=== PATIENT | female | born 1990 | race American Indian/Alaskan Native ===

== ENCOUNTER 2018-09-19 05:07 | Inpatient (IN) | payer OTHER ==
[2018-09-19 05:53] VITALS: BMI 32.5
[2018-09-19] MEDS ORDERED: Lactated Ringer's 1,000 ML IV ONE (06:11)
[2018-09-19] MEDS ORDERED: Penicillin G 5 Million Unit Vial IVPB ONE (06:11)
[2018-09-19] MEDS ORDERED: Lactated Ringer's 1,000 ML IV SCH (06:15)
[2018-09-19 06:33] LABS: BASO % 0.3 % (0.0-2.0); EOS # 0.1 K/uL (0.0-0.7); EOS % 0.7 % (0.0-4.0); HEMOGLOBIN 10.8 g/dL (11.0-16.0); LYMPH # 1.6 K/uL (1.0-4.3); MEAN CELL VOLUME 88.3 fL (81.0-99.0); MEAN CORPUSCULAR HEMOGLOBIN 29.5 pg (27.0-31.0); MEAN CORPUSCULAR HGB CONC 33.5 g/dL (33.0-37.0); MEAN PLATELET VOLUME 10.9 fL (7.2-11.7); MONO # 1.3 K/uL (0.0-0.8); MONO % 14.8 % (0.0-10.0); NEUT # 5.7 K/uL (1.8-7.0); NEUT % 65.2 % (50.0-75.0); RBC 3.66 Mil/uL (3.80-5.20); WHITE BLOOD COUNT 8.7 K/uL (4.8-10.8)
--- NOTE | 2018-09-19 06:45 | OBHP ---
Datetime: 09/19/2018 06:20 IP Adm Impression: Postterm, intrauterine ; No Active Labor; Intact Membranes IP Admit Plan: Admit to unit; Initiate labor protocol IP Admit Plan Other: Cervical ripening Admit Comment, IP Provider: 27 y.o. , LMP unsure, LIU 09/12/18 (per patient, no records in he r possession at this time), EGA 41 weeks c/o Ctx, onset 0200 hours, pain scale 6/10 to 7/10, every 10 minutes. (+) AFM; denies LOF, VB. care: [facility], last visit 09/14/18; h/o delivery at 26 weeks P Ob: x 4: all at [facility] [place], [place]. 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 No h/o STIs, abnormal Pap or myomata PMH: h/o asthma "I was very young". Denies ICU admission/intubation/ steroid use. Last attack"year sago". Does not use inhaler PSH: deneis NKDA Meds: last took vitamins 1 week ago "I ran out" Soc Hx: denies tobacco, illicit drug or EtOH use. Lives with her sister and her 3 daughters. Curre ntly unemployed Fam Hx: Mother alive 42. Father alive 40 - both, no med issues. Mat aunt - breast cance r. MGM also with cancer - type unknown P.E.: as above. Obese, in NAD. Awake, alert, oriented to time, person and place. Pleasant and coop erative. Assessment: 27 y.o. [id number], 41 weeks; h/o delivery with . CAtegory 1 tracing. GBS unknown. D/W patietn admission and anticipated vaginal delivery; will start with cervical ripeni ng. Patietn expressed an understanding and agrees. Patient is cliniclly stable. Plan: 1) ADmit 2) TRANSITION RN 3) Admission labs, including HIV, RPR, HBs Ag, rubella, UDS 4) Continuous EFM 5) Cervidil 6) Anticipate vaginal delivery - will endorse to incoming Attending Pelvic Type - PN: Adequate Extremities - PN: Normal Abdomen - PN: Normal Back - PN: Normal Breast - PN: Not Done Lungs - PN: Normal Heart - PN: Normal Thyroid - PN: Not Done Neurologic - PN: Normal HEENT - PN: Normal General - PN: Normal Weight - Estimated: 7lb Presentation-Admit: Vertex IP Fetus A Comments: 1deceleration noted x 3-4 minutes total; terrance to 90 bpm x 2 min - since recove red FHR - Baseline A Provider: 130 Contraction Comments Provider: irregular Comments, ACOG Physical Exam: HEENT: lower lip piercing on lower left lip Skin: multiple tattooes, arms and right leg Abdomen: Obese. Gravid. Soft, Non tender. Fundal height 40cm All other systems reviewed and are negative Gestation - Est Wks by US: 41.0 IP Hx Assessment: records not available EGA AdmitDate IP: 41.0 IP Indication for Induction: Postterm IP Chief Complaint: Uterine contractions NICHD Variability Prov Fetus A: Moderate 6-25bpm NICHD Accel Fetus A IP Provider: 15X15 FHR Category Provider Fetus A: Category I NICHD Decel Fetus A IP Provider: None Dilatation, Provider: 2-3 Effacement, Provider: 30 Station, Provider: -3 Genitourinary Exam: Normal DTRs - PN: Not Done
[2018-09-19 06:48] LABS: BARBITURATES, UR NEGATIVE (NEGATIVE); BENZODIAZEPINES, UR NEGATIVE (NEGATIVE); OPIATES, UR NEGATIVE (NEGATIVE); PHENCYCLIDINE, UR NEGATIVE (NEGATIVE)
--- NOTE | 2018-09-19 06:51 | OBPN ---
Datetime: 09/19/2018 06:47 IP Progress Impression Other: post sterm; previous delivery IP Procedures: Sterile Vag Exam IP Progress Plan: Cervical Ripening FHR - Baseline A Provider: 135 IP Progress Note Comment: Cervidil placed in posterior vaginal vault at 0645 hours NICHD Accel Fetus A IP Provider: 10X10 NICHD Variability Prov Fetus A: Moderate 6-25bpm NICHD Decel Fetus A IP Provider: None Datetime: 09/19/2018 06:20 Contraction Comments Provider: irregular IP Fetus A Comments: 1deceleration noted x 3-4 minutes total; terrance to 90 bpm x 2 min - since recove red Gestation - Est Wks by US: 41.0 Weight - Estimated: 7lb Presentation-Admit: Vertex FHR Category Provider Fetus A: Category I Dilatation, Provider: 2-3 Effacement, Provider: 30 Station, Provider: -3
[2018-09-19] MEDS ORDERED: Sodium Citrate/Citric Acid 15 ml Sol ONE ×2 (07:45→13:45)
[2018-09-19] MEDS ORDERED: cefOXitin IV 2 gm in Dextrose 2 GM/50 ML BAG IVPB ONE ×2 (07:46→14:00)
[2018-09-19] MEDS ORDERED: Morphine 1 mg/ml preservative-free Inj(Duramorph) ONE (07:59)
--- NOTE | 2018-09-19 08:55 | OBPN ---
Datetime: 09/19/2018 08:48 IP Progress Impression Other: NRFHT IP Informed Consent Obtain: Section Delivery IP Progress Plan: Deliver- Section FHR - Baseline A Provider: 130s IP Fetus A Comments: Bradycardia for 7 min from 130s-->90s, cervidil removed and resuscitation efforts made, pt given O2 and IV bolus. Scalp stim. with FHR recovery to 160s IP Progress Note Comment: a/p: 27 yo at 41 wks with NRFHT - multigravida - GBS + - Cat 3 - for stat C/S *late entry 2nd to performing stat C/S* Vital Signs Provider: Reviewed; Within Normal Limits NICHD Accel Fetus A IP Provider: 15X15 FHR Category Provider Fetus A: Category III NICHD Variability Prov Fetus A: Moderate 6-25bpm NICHD Decel Fetus A IP Provider: Late; Prolonged
--- NOTE | 2018-09-19 08:57 | OBDS ---
DELIVERY PERSONNEL Delivery Doctor: Tommy Dey MD Anesthesiologist: Edith Matias MD (Annotations: Data stored by [facility] on behalf of user) LABOR SUMMARY EDC: 09/12/2018 00:00 LABOR INFORMATION Onset of Labor: 09/19/2018 02:00 Cervical Ripening Agents: Cervidil (Annotations: 10mg inserted vaginally by ) STAGES OF LABOR Stage 3 hrs: 0 Stage 3 min: 1 Total Time in Labor hrs: 6 Total Time in Labor min: 11 CSECTION DELIVERY Primary Indication: Nonreassuring Status CSection Urgency: Emergency CSection Incidence: Primary Labor: No Labor Elective: Nonelective CSection Incision: Lower Uterine Transverse Uterine Closure: Double-layer closure BABY A INFORMATION Delivery Date/Time: 09/19/2018 08:10 Method of Delivery: Born in Route : No : N/A Forceps: N/A Vacuum Extraction: N/A Shoulder Dystocia : No SHOULDER DYSTOCIA BABY A Delivery Date/Time: 09/19/2018 08:10 PRESENTATION/POSITION BABY A Presentation: Cephalic Cephalic Presentation: Vertex Vertex Position: Left Occipital Anterior Breech Presentation: N/A PLACENTA INFORMATION BABY A Placenta Delivery Time : 09/19/2018 08:11 Placenta Method of Delivery: Manual Removal Placenta Status: Delivered SCORES BABY A Heart Rate 1 min: >100 bpm Resp Effort 1 min: Good Cry Reflex Irritability 1 min: Cough or Sneeze or Pulls Away Muscle Tone 1 min: Active Motion Color 1 min: Body Glide, Extremities Blue SCORE 1 MIN: 9 Heart Rate 5 min: >100 bpm Resp Effort 5 min: Good Cry Reflex Irritability 5 min: Cough or Sneeze or Pulls Away Muscle Tone 5 min: Active Motion Color 5 min: Body Glide, Extremities Blue SCORE 5 MIN: 9 INFANT INFORMATION BABY A Gestational Age at Delivery: 41.0 Gestational Status: Term Infant Outcome : Liveborn Condition : Stable Infant Sex: Male IDENTIFICATION/MEDS BABY A ID Band Location: Left Leg; Left Arm Sensor Applied: Yes Sensor Number: [id number] Sensor Location : Cord Clamp WEIGHT/LENGTH BABY A Birthweight (gms): 3415 Infant Weight (lb): 7 Weight (oz): 8 Length Inches: 18.50 Length cms: 47.0 CORD INFORMATION BABY A No. Cord Vessels: 3 Nuchal Cord : Around Neck x1, Loose Nuchal Cord Other: N/A True Knot: 0 Cord Blood Taken: Yes Suction: Mouth; Nose ASSESSMENT BABY A Complications: None Physical Findings at Delivery: Within Normal Limits Respirations: Appears Normal Commercial Real Estate Lender/ALS Called : No Infant Care By: Dr. House/Ebony RN Transferred To: Remains with Mother
[2018-09-19 17:36] LABS: RAPID PLASMA REAGIN NONREACTIVE (NONREACTIVE)
[2018-09-20 07:26] LABS: HEMOGLOBIN 10.1 g/dL (11.0-16.0); MEAN CELL VOLUME 87.5 fL (81.0-99.0); MEAN CORPUSCULAR HEMOGLOBIN 29.4 pg (27.0-31.0); MEAN CORPUSCULAR HGB CONC 33.6 g/dL (33.0-37.0); MEAN PLATELET VOLUME 9.9 fL (7.2-11.7); RBC 3.45 Mil/uL (3.80-5.20); WHITE BLOOD COUNT 10.7 K/uL (4.8-10.8)
--- NOTE | 2018-09-20 19:27 | OBPPN ---
Datetime: 09/20/2018 07:28 PP Pain Prov: Within normal limits PP Nausea Prov: Denies PP Flatus Prov: Yes PP BM Prov: No PP Heart Prov: Normal PP Lungs Prov: Normal PP C/S Incision Prov: Normal PP Comments Phys Exam Prov: Gen: no acute distress Heart: RRR, no m/r/g Lungs: CTAB, no r/r/w Abd: soft, TTP on LUQ. Dressing removed - incision clean and intact. Fundal height 1 finger below Ext: no edema, pulses palpable (radial, PT) PP Impression Prov: Normal progression PP Plan Prov: Continue present management PP Progress Note Prov: Patient was seen and examined today in bed in no acute distress. Patient is t olerating regular diet without n/v. She is easily urinating and passing flatus, but hasn't had a BM y et. She is walking in her room, having breakthrough pain when rising OOB. Describes improving lochia, using 2 pads per day. She is exclusively formula feeding. She is not using the abdominal binder unle ss walking. A/P: 27yo POD#1 primary C/S for nonreassuring tracing - change to Motrin for pain management - encourage ambulation - encourage abdominal binder when walking - consent obtained for circumcision Mariama Parra PGY-1 Attending Note: Patient seen, evaluated and examined by me with the Resident. I agree with the abo ve as documented. POD#1 H/H 10.1/30.2 - stable. Rh (+). Patient is clinically stable. - As above. IP PP Procedures: None Vital Signs Provider PP: Reviewed
[2018-09-21 08:11] VITALS: RESP 18
[2018-09-21] MEDS: Oxycodone/Acetaminophen 5/325 mg Tab PO PRN ×3 (09:14→21:52)
--- NOTE | 2018-09-21 19:41 | OBPPN ---
Datetime: 09/21/2018 07:06 PP Pain Prov: Within normal limits PP Nausea Prov: Denies PP Flatus Prov: Yes PP BM Prov: Yes PP Breasts Prov: Not Done PP Heart Prov: Normal PP Lungs Prov: Normal PP Abdomen/Uterus Prov: Normal PP Lochia Prov: Normal PP Vulva/Perineum Prov: Not Done PP CVA Tenderness Prov: Normal PP Extremities Prov: Normal PP C/S Incision Prov: Normal PP Progress Prov: Normal PP Comments Phys Exam Prov: Gen: NAD, AAOx3 HEENT: EOMI, PERRLA Cardio: RRR, +s1, +s2, no murmurs, gallops, rubs Resp: normal breathing pattern, CTAB, no wheezing, rhonchi, rales GI: normal bowel sounds, soft, nontender abd, incision site c/d/i, fundal height Extremities: normal muscle strength +5/5 in the upper and lower extremities PP Impression Prov: Normal progression PP Plan Prov: Continue present management PP Progress Note Prov: Patient was seen at bedside is in no acute distress. Patient offers no additi onal complaints today. Pt is ambulating well, has had a BM, and is passing flatus. Pt states her loch ia is improving, using 1 pad per day. Pt is experience pain around the incision site, but is tolerati ng it with Motrin. Pt is tolerating a normal diet without n/v. Pt is exclusively formula feeding. A/P: 27F is POD #2 from primary for distress. -Continue Motrin and Percocet prn for pain -Encourage ambulation with abd binders -Continue to increase po water intake and fiber in diet Advance care Anticipate discharge home in AM Anticipate discharge home in AM IP PP Procedures: None Vital Signs Provider PP: Reviewed; Within Normal Limits
--- NOTE | 2018-09-22 09:20 | CP.PCM.DIS ---
Provider - Provider Date of Admission: 09/19/18 06:11 Attending physician: Emilia Tariq MD Consults: 09/19/18 06:14 Anesthesiology Consult Routine Comment: Consulting Provider: Nelson Soria Consulting Physician: Nelson Soria Reason for Consult: Labor pain 09/22/18 06:23 Social Work Referral Routine Comment: DYFS case Physician Instructions: Reason For Exam: DYFS case Time Spent in preparation of Discharge (in minutes): 30 Diagnosis - Discharge Diagnosis (1) Delivery by emergency section Status: Resolved Hospital Course - Lab Results Lab Results: Most Recent Lab Values WBC 10.7 K/uL (4.8-10.8) 09/20/18 07:18 RBC 3.45 Mil/uL (3.80-5.20) L 09/20/18 07:18 Hgb 10.1 g/dL (11.0-16.0) L 09/20/18 07:18 Hct 30.2 % (34.0-47.0) L 09/20/18 07:18 MCV 87.5 fL (81.0-99.0) 09/20/18 07:18 MCH 29.4 pg (27.0-31.0) 09/20/18 07:18 MCHC 33.6 g/dL (33.0-37.0) 09/20/18 07:18 RDW 14.0 % (11.5-14.5) 09/20/18 07:18 Plt Count 160 K/uL (130-400) 09/20/18 07:18 MPV 9.9 fL (7.2-11.7) 09/20/18 07:18 Neut % (Auto) 65.2 % (50.0-75.0) 09/19/18 06:28 Lymph % (Auto) 19.0 % (20.0-40.0) L 09/19/18 06:28 Harlan % (Auto) 14.8 % (0.0-10.0) H 09/19/18 06:28 Eos % (Auto) 0.7 % (0.0-4.0) 09/19/18 06:28 Baso % (Auto) 0.3 % (0.0-2.0) 09/19/18 06:28 Neut # (Auto) 5.7 K/uL (1.8-7.0) 09/19/18 06:28 Lymph # (Auto) 1.6 K/uL (1.0-4.3) 09/19/18 06:28 Harlan # (Auto) 1.3 K/uL (0.0-0.8) H 09/19/18 06:28 Eos # (Auto) 0.1 K/uL (0.0-0.7) 09/19/18 06:28 Baso # (Auto) 0.0 K/uL (0.0-0.2) 09/19/18 06:28 Urine Opiates Screen Negative (NEGATIVE) 09/19/18 06:28 Urine Methadone Screen Negative (NEGATIVE) 09/19/18 06:28 Ur Barbiturates Screen Negative (NEGATIVE) 09/19/18 06:28 Ur Phencyclidine Scrn Negative (NEGATIVE) 09/19/18 06:28 Ur Amphetamines Screen Negative (NEGATIVE) 09/19/18 06:28 U Benzodiazepines Scrn Negative (NEGATIVE) 09/19/18 06:28 U Oth Cocaine Metabols Negative (NEGATIVE) 09/19/18 06:28 U Cannabinoids Screen Negative (NEGATIVE) 09/19/18 06:28 RPR Nonreactive (NONREACTIVE) 09/19/18 06:28 Hep Bs Antigen Negative (NEGATIVE) 09/19/18 06:28 HIV 1&2 Antibody Screen Negative (NEGATIVE) 09/19/18 06:28 Rubella IgG Antibody Positive (POSITIVE) 09/19/18 06:28 Blood Type O POSITIVE 09/19/18 06:28 Antibody Screen Negative 09/19/18 06:28 - Hospital Course Hospital Course: Darryl Ramirez, PGY-1 Discharge Summary for OB Hospitalist Service 27 F female who presented to OB unit for indications of distress. records were not available. Patient was 41 weeks 0 days and complained of contractions. Anesthesiology was consulted for protocol. Patient was admitted, labs were drawn and Cervidil was given. Nonreassuring status was noted and emergency was prepared. Patient delivered a liveborn male. Baby boy received a circumcision. Pain control was initially performed with Toradol, which was then converted to Motrin and Percocet. DYFS was consulted. Patient is to be discharged with Motrin and Percocet, Colace, and vitamins. For further and complete details of hospitalization, please refer to EMR. Case reviewed and plan approved by Dr. Downs. Discharge Exam - Head Exam Head Exam: ATRAUMATIC, NORMAL INSPECTION, NORMOCEPHALIC - Eye Exam Eye Exam: EOMI, Normal appearance Pupil Exam: PERRL - Neck Exam Neck exam: Full Rom - Respiratory Exam Respiratory Exam: NORMAL BREATHING PATTERN, UNREMARKABLE - Cardiovascular Exam Cardiovascular Exam: RRR, +S1, +S2 - GI/Abdominal Exam GI & Abdominal Exam: Normal Bowel Sounds, Tenderness (lower abdomen). absent: Distended, Firm, Guarding, Rebound, Rigid - Exam External exam: absent: NORMAL EXTERNAL EXAM (dung present on transvaginal incision, no erythema) - Neurological Exam Neurological exam: Alert, Oriented x3 Discharge Plan - Discharge Medications Prescriptions: Docusate [Colace] 100 mg PO BID #20 cap Ibuprofen [Motrin Tab] 600 mg PO Q6H #60 tab Multivit/Folic Acid/I [ Plus] 1 tab PO DAILY #30 tab - Follow Up Plan Condition: GOOD Disposition: HOME/ ROUTINE Additional Instructions: She is to follow up with her OB in 1 week for incision check. Please make an appointment with the baby's airplane mechanic within 1 week. Pelvic rest x 6 weeks - no sex, no tampons, or douching Please continue taking the following medications: Take Motrin (mild to moderate) and Percocet (severe) for pain as needed and Colace as needed as the pain medication Percocet can make you constipated.
--- NOTE | 2018-09-22 09:44 | OBPPN ---
Datetime: 09/22/2018 06:44 PP Pain Prov: Within normal limits PP Nausea Prov: Denies PP Flatus Prov: Yes PP BM Prov: Yes PP Heart Prov: Normal PP Lungs Prov: Normal PP Abdomen/Uterus Prov: Normal PP Lochia Prov: Normal PP Comments Phys Exam Prov: Gen: NAD, AAOx3 HEENT: EOMI, PERRLA Cardio: RRR, +s1, +s2, no murmurs, gallops, rubs Resp: normal breathing pattern, CTAB, no wheezing, rhonchi, rales GI: normal bowel sounds, soft, nontender abd, incision site c/d/i, fundal height Extremities: normal muscle strength +5/5 in the upper and lower extremities PP Impression Prov: Normal progression PP Plan Prov: Continue present management; Discharge PP Progress Note Prov: Patient was seen at bedside is in no acute distress. Patient offers no additi onal complaints today. Pt is ambulating well, has had a BM, and is passing flatus. Pt states her loch ia is improving, using 1 pad per day. Pt is experience pain around the incision site, but is tolerati ng it with Motrin. Pt is tolerating a normal diet without n/v. Pt is exclusively formula feeding. A/P: 27F is POD #3 from primary for distress. - Discharge planning today with appropriate follow up - Continue Motrin and Percocet prn for pain - Encourage ambulation with abd binders as well as breast feeding - control plans Darryl Ramirez, PGY-1 Vital Signs Provider PP: Reviewed; Within Normal Limits
--- NOTE | 2018-09-22 09:46 | OBDCSUM ---
Datetime: 09/22/2018 09:43 Discharged to, Provider: Home Follow up at, Provider: marlene 09/27 Disch Instr Diet: Regular Discharge Diagnosis, Provider: Term Delivered Follow up in weeks, Provider: clinic Disch Activity Restrictions: No driving; Minimize walking; Minimize stair-climbing; No sexual activi ty; Nothing in vagina - [place], tampons, douche Discharge Comment, Provider: percocet, prn motr no sex f/u dung remobval Discharge Diagnosis Prov Other: s/p c/s
[2018-09-22 21:58] VITALS: BP 116/68; PULSE 94; TEMP 99; O2SAT 100
--- NOTE | 2018-10-03 08:36 | OP ---
PROCEDURE DATE: 09/19/2018 PREOPERATIVE DIAGNOSIS: A 41-week with nonreassuring heart tracing for primary section. POSTOPERATIVE DIAGNOSIS: A 41-week with nonreassuring heart tracing for primary section. PROCEDURE: Repeat low transverse section via Pfannenstiel skin incision. SURGEON: Александр Dey DO COIL WINDER REPAIR: Emilia Tariq MD ANESTHESIA ADMINISTERED BY: Dr. Almendarez. FLUIDS: None. ESTIMATED BLOOD LOSS: 800 mL COMPLICATIONS: Text. SPECIMEN: Placenta and cord. CONDITION: Stable. INFECTION PROPHYLAXIS: 2g of Ancef, ChloraPrep DVT PROPHYLAXIS: SCDs in place. DESCRIPTION OF PROCEDURE: The patient was taken to the operating room where spinal anesthesia was found to be adequate. She was then prepped and draped in normal sterile fashion in dorsal supine position. A Pfannenstiel skin incision was made with a scalpel and carried to the underlying layer of fascia. The fascia was then incised in the midline, incision extended laterally. The inferior aspect of the fascial incision was then grasped with Deepa clamps, and the rectus muscle was dissected off sharply. Attention was then turned to the superior aspect of the fascial incision, and the rectus muscle was dissected off in a similar fashion. The rectus muscle was then in the midline down to the pubic symphysis. Peritoneum was identified and free of any bowel and entered bluntly. Peritoneum was further with gentle retraction. A bladder blade was inserted. The lower uterine segment was then incised in a transverse fashion. The uterine incision was then extended bluntly in a lateral upward retraction. Infant's head was brought up to the incision, and the infant was delivered without difficulty. Mouth and nose were suctioned. Cord was clamped and cut. Infant was then handed off to the awaiting location director. Placenta was manually removed. The uterus was exteriorized, and dry lap was used to assure complete removal of placental membranes. Uterine incision was reapproximated with 0 Monocryl in running locked fashion with good hemostasis. Moist laparotomy sponge and irrigation were used to assure complete removal of blood clots and fluids from the abdominal cul-de-sac. Uterus, tubes, and bilateral ovaries were noted to be normal and returned back to the abdominal cavity. The muscles were then reapproximated with running stitch of 2-0 Monocryl. Fascial incision was reapproximated using 0 Vicryl in a continuous running fashion. Subcutaneous layer was reapproximated with interrupted stitches of plain gut. Skin was closed with dung. All sponge, lap, and needle counts were correct x2. The patient tolerated the procedure well, and the patient was taken to the recovery room in stable condition. Александр Dey DO MTDD
== END 2018-09-22 15:45 | disposition home or self-care (01) | DRG 371 ==
LOC: C.EROB 05:07 → C.4D 06:11 → C.4M 12:57
PROVIDERS: ADMIT Obstetrics & Gynecology; ATTEND Obstetrics & Gynecology
PROC: 10D00Z1 Extraction of Products of Conception, Low, Open Approach (ICD-10-PCS; principal; 2018-09-19)
PROC: 3E0P7VZ Introduction of Hormone into Female Reproductive, Via Natural or Artificial Opening (ICD-10-PCS; 2018-09-19)
DX: O48.0 Post-term pregnancy (principal); O76 Abnormality in fetal heart rate and rhythm complicating labor and delivery; O69.81X0 Labor and delivery complicated by cord around neck, without compression, not applicable or unspecified; O99.824 Streptococcus B carrier state complicating childbirth; Z3A.41 41 weeks gestation of pregnancy; Z37.0 Single live birth